=== PATIENT | male | born 1990 | race Caucasian/White ===

== ENCOUNTER 2019-02-05 20:17 | Emergency (ER) | payer MEDICAID ==
[2019-02-05] MEDS: ACETAMINOPHEN 325 MG TAB PO (20:47)
== END 2019-02-05 21:35 | disposition home or self-care (01) ==
LOC: FTE 20:17
DX: S62.646A Nondisplaced fracture of proximal phalanx of right little finger, initial encounter for closed fracture (principal); X58.XXXA Exposure to other specified factors, initial encounter; Y92.310 Basketball court as the place of occurrence of the external cause
CPT/HCPCS: 29130; 73140; 99283-25